=== PATIENT | female | born 1980 | race Caucasian/White ===

== ENCOUNTER → 2016-12-27 | Day surgery (SDC) | payer OTHER ==
[2016-12-23 12:12] LABS: BASO # 0.1 10*3/uL (0.0-0.1); BASO % 1.1 % (0.0-1.0); EOS % 0.3 % (1.0-4.0); HEMATOCRIT 42.5 % (37.0-47.0); HEMOGLOBIN 14.1 g/dl (12.0-16.0); LYMPH # 1.8 10*3/uL (1.3-4.4); MEAN CELL VOLUME 90.8 fl (81.0-99.0); MEAN CORPUSCULAR HGB 30.1 pg (27.0-31.0); MEAN CORPUSCULAR HGB CONC 33.2 g/dl (33.0-37.0); MEAN PLATELET VOLUME 12.4 fl (9.6-12.3); MONO # 0.6 10*3/uL (0.1-1.0); MONO % 5.3 % (3.0-9.0); NEUT # 8.6 10*3/uL (2.3-7.9); NEUT % 76.9 % (47.0-73.0); PLATELET COUNT AUTOMATED 306 10*3/uL (130-400); RED BLOOD COUNT 4.68 10*6/uL (4.10-5.10); RED CELL DISTRI WIDTH 13.3 % (0-14.5); WHITE BLOOD COUNT 11.2 10*3/uL (4.8-10.8)
[~2016-12-27] VITALS: Ht 165.1 cm; Wt 68.0 kg
[~2016-12-27] MED LIST: BIRTHCONTROL PO
--- NOTE | ~2016-12-27 | WRIGHTHP ---
[place], [place] PATIENT HISTORY AND PHYSICAL EXAM [id number] UNIT #: [id number] ROOM: DOCTOR: RAKESH CUEVA MD BIRTHDATE: [birth year] DOS: 12/21/2016 DATE OF PROPOSED SURGERY: 12/27/2016. HISTORY OF PRESENT ILLNESS: This patient is a 36-year-old white female who is a 4, para 0, AB 4, whose last menstrual period was 12/08/2016, who presented to the office on 12/20/2016 as a kind referral from María Silva. The patient related no issues related with her menses until she had been taken off her control pills about 1-1/2 years ago by her [employer] at that time for reasons of combination of her age and smoking history. The patient stated that she was not offered any other significant control or menstrual regulating therapies, and was told she had only a small percent chance of success with an ablation. She has had a very heavy 7-plus day periods, clotty flow, significant cramping, especially worse over the past 7 months. She made a change and proceeded to see María Silva, who is a long time experienced nurse practitioner in [employer] and was initiated on progesterone only control pills about the last bcgth-baa-f-half. The patient states that her dysfunctional bleeding really has not changed much in regard to this, but it is only as I said been a rkmja-ibd-l-half. The patient subsequently had an ultrasound of the pelvis, which revealed a small posterior fibroid, normal adnexa, but revealed interestingly an ovoid 3.6 x 2.4 x 2.0 cm mass inside the endometrial cavity. The question is whether this was a polyp or whether this was a fibroid. The patient and I have discussed hysteroscopy, D and C and polypectomy, but then in regard to these menstrual issues, we also, if successful with those procedures, discussed NovaSure ablation. We will photograph and remove if possible the lesion inside the uterus and if we are unable to do so, then at a later date postoperatively, we will talk about a hysterectomy. The risks, benefits, indications, potential complications, and alternatives of these procedures were given, understanding stated and she did sign a consent. The patient is scheduled for 12/27/2016. PAST MEDICAL HISTORY: Reveals the patient to have had 4 pregnancies, but 4 losses that were questionably in the late first trimester or early second trimester. The patient does have one child by surrogate . She is presently using the Blanquita-BE, the progesterone only control pill as we mentioned above. She has had no abnormal Paps and her last negative Pap was in 07/2016. She has had D and C's associated with the miscarriages. The patient does smoke approximately a pack per day. She drinks only socially. She uses Motrin p.r.n. for her cramping. ALLERGIES: She has no known allergies. FAMILY HISTORY: Reveals no significant abnormalities. PHYSICAL EXAMINATION: GENERAL: Reveals a pleasant white female. VITAL SIGNS: Blood pressure is 120/62. Height 5 feet 5 inches, weight 156, BMI 26 and she is in no apparent distress. [place], [place] PATIENT HISTORY AND PHYSICAL EXAM NAME: VIANNEY ESCOBAR UNIT #: [id number] ROOM: DOCTOR: RAKESH CUEVA MD BIRTHDATE: [birth year] HEENT AND NECK: Stable. LUNGS: Stable. CARDIAC: Stable. BREASTS: Stable. ABDOMEN: Normal. EXTREMITIES: Grossly intact. NEUROLOGIC: Grossly intact. GENITOURINARY: The external genitalia, vagina and cervix all normal. Uterus is without significant enlargement and the rest of the findings of the uterus were noted above per ultrasound, adnexa were negative. RECTAL: Deferred. ASSESSMENT: A patient with dysfunctional bleeding, menorrhagia and apparent endometrial polyp, although possibly an intrauterine fibroid and really significant menstrual flow, clotting, etc. PLAN: The patient on 12/27/2016 will undergo hysteroscopy, D and C, intrauterine polypectomy, and if successful, we will also have a NovaSure endometrial ablation. RAKESH CUEVA MD CM:HISPHYS:PATIENT HISTORY AND PHYSICAL EXAMINATION [id number] RAKESH CUEVA MD 12/23/16 1203 interface
--- NOTE | ~2016-12-27 | O ---
[place], [place] OPERATIVE NOTE NAME: VIANNEY ESCOBAR UNIT #: [id number] ROOM: DOCTOR: RAKESH COLUNGA MD BIRTHDATE: [birth year] DOS: 12/27/2016 PREOPERATIVE DIAGNOSES: Dysfunctional uterine bleeding, hypermenorrhea, and large endometrial polyp or fibroid. POSTOPERATIVE DIAGNOSES: Dysfunctional uterine bleeding, hypermenorrhea, and large endometrial polyp or fibroid. Confirmation of a large intrauterine fibroid with a broad base in the anterior uterus. OPERATION: Hysteroscopy, D and C. SURGEON: Dr. Colunga. ANESTHESIA: MAC. ESTIMATED BLOOD LOSS: Minimal. REPLACEMENTS: IV fluids and Toradol. COMPLICATIONS: There were no complications. The patient's condition to recovery stable. OPERATIVE SUMMARY: The patient was taken to the operating room in supine position. MAC anesthesia, lithotomy position, prepped and draped in routine manner. The anterior cervix was grasped with tenaculum. Uterus sounded to 8 cm. The cervix was progressively dilated and hysteroscope introduced. A thorough examination of the intrauterine cavity revealed the cornua and fundus to be normal. In the anterior body of the uterus, there was a prominent round classically appearing fibroid and not a polyp. The rest of the posterior and lateral aspects of the body of the uterus, and lower uterine segment were within normal limits. We did perform a thorough D and C, and we attempted with several different instruments to possibly remove this apparent uterine fibroid, but to no avail. We reexamined the intrauterine cavity and again confirmed that this was consistent with a prominent fibroid and not polyp at all. To that end, we will discuss with the patient afterwards her initial and original desire for hysterectomy versus transfer to a higher level institution, where an intrauterine myomectomy might be performed hysteroscopically. At that point, having concluded our second hysteroscopic evaluation, we removed all instrumentation from the uterus and vagina. Noting good hemostasis, the patient was cleaned off, taken out of lithotomy position, awakened and transferred to recovery with stable vital signs, stable sponge and instrument count, and as I said good hemostasis. [place], [place] OPERATIVE NOTE NAME: VIANNEY ESCOBAR UNIT #: [id number] ROOM: DOCTOR: RAKESH COLUNGA MD BIRTHDATE: [birth year] RAKESH COLUNGA MD CM:ANITHA:OPERATIVE NOTE [id number] RAKESH COLUNGA MD 12/27/16 1002 interface
--- NOTE | ~2016-12-27 | WRIGHTHP ---
[place], [place] PATIENT HISTORY AND PHYSICAL EXAM [id number] UNIT #: [id number] ROOM: DOCTOR: RAKESH CUEVA MD BIRTHDATE: [birth year] DOS: 12/27/2016 ADDENDUM Anticipated surgery on 01/03/2017 for an LAVH and probable bilateral salpingectomy. HISTORY: This patient had just undergone a hysteroscopy and D and C on 12/27/2016 and at that time, a prominent anterior fibroid with a broad base was noted in the body of the uterus. She also had significant hypermenorrhea, DUB, and anemia ____ remove this if it was a prominent polyp and then proceed with NovaSure. Since we are unable to do so, I had discussed with the patient's family, both referral for hysteroscopic myomectomy or LAVH. She had desired on her initial appointment and she promptly returned a call to the office stating that she wanted to proceed with LAVH. The risks, benefits, indications, potential complications, and alternatives have been reviewed with the patient and then she had stated understanding and signed her consent. Past history, review of systems, family history, physical exam, allergies, medication list, etc., are all unchanged from the H and P that I have just dictated several days ago. PLAN: At this time is to proceed with LAVH/bilateral salpingectomy ____ on 01/03/2017. RAKESH CUEVA MD CM:HISPHYS:PATIENT HISTORY AND PHYSICAL EXAMINATION 1405 [id number] RAKESH CUEVA MD 12/28/16 2148 interface
[2016-12-27 07:55] VITALS: BP 117/57
[2016-12-27 09:30] VITALS: BP 122/80
[2016-12-27 09:45] VITALS: BP 118/53
[2016-12-27 09:57] VITALS: BP 107/53
[2016-12-27 10:14] VITALS: BP 121/60
[2016-12-27 10:31] VITALS: BP 117/68
== END | disposition home or self-care (01) ==
LOC: SDC 12-23 11:00
PROVIDERS: Obstetrics & Gynecology
DX: N84.0 Polyp of corpus uteri (principal); N93.8 Other specified abnormal uterine and vaginal bleeding; N92.0 Excessive and frequent menstruation with regular cycle; F41.9 Anxiety disorder, unspecified; F17.210 Nicotine dependence, cigarettes, uncomplicated

== ENCOUNTER 2017-01-03 08:30 | Inpatient (IN) | payer OTHER ==
[~2017-01-03] VITALS: Ht 165.1 cm; Wt 69.0 kg
[2017-01-03] VITALS (7 sets, daily range): BP systolic 103–140; BP diastolic 49–82
--- NOTE | ~2017-01-03 | DS ---
[place], [place] DISCHARGE SUMMARY [id number] UNIT #: [id number] ROOM: 511 DOCTOR: RAKESH CUEVA MD BIRTHDATE: [birth year] DOS: 01/04/2017 HOSPITAL COURSE: This is a elizabeth 36-year-old white female who was admitted on 01/03/2017 being status post an LAVH and bilateral salpingectomy for reasons of dysfunctional bleeding, anemia, dysmenorrhea, fibroid uterus and inability to perform a more conservative procedure for the bleeding issues and the anemia. The LAVH and bilateral salpingectomy went very well on 01/03/2017 with EBL being well, less than 100 mL. Postoperatively, the patient has done quite well with resumption of bodily functions, good ambulation, and toleration of regular diet. She has no significant vaginal bleeding following the surgery. Her physical exam; otherwise, including her vital signs, heart, lungs, abdomen, and extremities all within normal limits. I reviewed in detail the operative procedure with the patient as well as reviewing the pictures that we had taken with the surgery itself. The patient did state understanding. The patient and I spent discussing discharge instructions. She will increase diet and activity as tolerated at home. She will follow up in 6 weeks. She will contact us should she have any complications were perceived, complications as outlined in the discharge summary. She was given Percocet 5/325 one tablet p.o. q.4-6 hours p.r.n. #20 without refill. She will use intermix this with nonsteroidal anti-inflammatory agents as needed. The patient did state understanding to the information that was provided and discharge instructions and was discharged in satisfactory condition on 01/04/2017. RAKESH CUEVA MD CM:DISCHARG [id number] RAKESH CUEVA MD 01/04/17 1157 interface
--- NOTE | ~2017-01-03 | O ---
[place], [place] OPERATIVE NOTE [id number] UNIT #: [id number] ROOM: 511 DOCTOR: RAKESH CUEVA MD BIRTHDATE: [birth year] DOS: 01/03/2017 PREOPERATIVE DIAGNOSES: Hypermenorrhea, dysmenorrhea, dysfunctional bleeding, anemia, large submucosal and anterior subserosal fibroid, unable to perform other conservative therapies. POSTOPERATIVE DIAGNOSES: Hypermenorrhea, dysmenorrhea, dysfunctional bleeding, anemia, large submucosal and anterior subserosal fibroid, unable to perform other conservative therapies. OPERATION: LAVH and bilateral salpingectomy. SURGEON: Dr. Rakesh Cueva and Dr. Maier. ANESTHESIA: General. ESTIMATED BLOOD LOSS: 50 mL. REPLACEMENTS: IV fluids, Ofirmev, Ancef and Toradol. COMPLICATIONS: There were no complications. CONDITION: The patient's condition to recovery was stable. OPERATIVE SUMMARY: The patient was taken to the operating room and placed in supine position, administered general anesthesia with endotracheal intubation followed by placement of lithotomy position, where she was prepped and draped in routine manner. A Elder catheter was placed to straight drain. The cervix was grasped with a tenaculum and a cervical manipulator placed. The infraumbilical and suprapubic incisions as well as the right lower quadrant incision were then made and under direct visualization to the infraumbilical incision, a 5 mm trocar, sleeve and laparoscope were placed. Insufflation with CO2 was undertaken followed by placement of the suprapubic trocar and sleeve and the right lower quadrant trocar and sleeve. Once the probes and trocar sleeves had been placed, we examined the pelvis and we noted that there was a prominent anterior uterine fibroid. The tubes and ovaries were normal otherwise. The anterior and posterior cul-de-sacs were normal and all supporting structures were normal bilaterally. The appendix, liver edge and gallbladder appeared to be normal. There were some omental to anterior abdominal wall adhesions and right mid abdomen, etiology of which were unknown and these were not touched or bothered. We then turned our attention to the pelvis, where using the LigaSure device and various manipulating instruments, we removed the fallopian tubes, leaving the ovarian blood supply intact. We then took successive pedicles to the uteroovarian and the round ligament down to a point just above the uterine vascular, insertion of the uterus. We then partially created a bladder flap. Once this was completed bilaterally and noting good hemostasis, we removed our instrumentation and turned our attention vaginally, where the cervix was regrasped, injected in a circumferential manner with 2% lidocaine with epinephrine and a circumferential incision was made. Bladder was displaced anteriorly and the rectum posteriorly. We entered the posterior cul-de-sac and [place], [place] OPERATIVE NOTE NAME: VIANNEY ESCOBAR UNIT #: [id number] ROOM: [facility] DOCTOR: RAKESH CUEVA MD BIRTHDATE: [birth year] created uterosacral and cardinal ligament pedicles, ligating these with 0 Vicryl in transfixing manner followed by further displacing the bladder anteriorly and entering the anterior cul-de-sac without complication. We then used the LigaSure device bilaterally to create successive pedicles bilaterally and we were then able to remove the cervix, uterus and remaining fallopian tubes intact. Once this had been removed, we examined for good hemostasis. We noted all her pedicles were hemostatic and her sponge and instrument count was right. We reperitonealized with 2-0 Vicryl in a pursestring manner and then closed the vaginal cuff with a series of interrupted [id number] 0 Vicryl sutures. Once this was completed, we reinsufflated the abdomen and examined the pelvis carefully and noted good hemostasis, noted that the ureters were peristalsing normally and noting good support at the cuff itself and noting no other atypicalities. Once this repeat survey was undertaken, the 2 lower abdominal trocars, sleeves and instrumentation were removed and noting no excessive anterior abdominal bleeding. CO2 was allowed to escape, followed by removal of the infraumbilical trocar, sleeve. Each incision was then closed with subcuticular 3-0 Monocryl suture. Steri-Strips placed and dressings placed. We then cleaned the patient off, took her out of lithotomy position, awakened her, extubated her and transferred to recovery in satisfactory condition with clear and adequate urine output, stable sponge and instrument count, good hemostasis, and stable vital signs. RAKESH CUEVA MD CM:OPRECORD:OPERATIVE NOTE 1349 [id number] RAKESH CUEVA MD 01/03/17 1536 interface
[~2017-01-03 08:30] MED LIST changes: +MOTRIN IB200 M1 PO
[2017-01-04 08:00] VITALS: BP 101/41
== END 2017-01-04 09:57 | disposition home or self-care (01) | DRG 743 ==
LOC: SDC 08:30 → 5E 08:31 → SDC 13:30 → 5E 01-04 09:57 → SDC 01-06 08:00
PROC: 0UT7FZZ Resection of Bilateral Fallopian Tubes, Via Natural or Artificial Opening With Percutaneous Endoscopic Assistance (ICD-10-PCS; principal; 2017-01-03)
PROC: 0UT9FZZ Resection of Uterus, Via Natural or Artificial Opening With Percutaneous Endoscopic Assistance (ICD-10-PCS; principal; 2017-01-03)
DX: D25.0 Submucous leiomyoma of uterus (principal); D25.2 Subserosal leiomyoma of uterus; D64.9 Anemia, unspecified; N83.8 Other noninflammatory disorders of ovary, fallopian tube and broad ligament